=== PATIENT | female | born 1995 | race Caucasian/White ===

== ENCOUNTER 2022-03-08 06:36 | Outpatient (CLI) | payer OTHER, SELFPAY ==
--- NOTE | ~2022-03-08 | MR_ITS ---
MRI of the right knee Clinical history: Meniscal tear Technique: Coronal proton density and proton density-weighted images, sagittal proton-density and T2 fat-sat images, and axial proton-density fat-saturated images were acquired. Findings: Anterior and posterior cruciate ligaments are intact. Medial collateral ligament and the la teral collateral ligament complex are intact. Popliteus tendon is intact. Medial and lateral menisci are intact, without evidence of tear. Articular cartilage is well preserved in all 3 joint compartments. Bone marrow signals are unremarkab le. There is an intra-articular somewhat masslike lesion along the anteromedial aspect of the medial femoral condyle, with intermediate signal, with superimposed low signal foci on all pulse sequences. This lesion measures approximately 2.9 x 0.5 x 2.7 cm in extent (series 2 image 12-15, series 4 image 8-9 for example). Extensor mechanism is intact. Small joint effusion is present. No Sauer's cyst. Impression: 2.9 x 0.5 x 2.7 cm intra-articular lesion along the anteromedial aspect of the medial femoral condyle , as detailed above. This is most compatible with focal/localized PVNS. Small joint effusion. Reviewed, dictated and finalized at location [] RAISER Impression: 2.9 x 0.5 x 2.7 cm intra-articular lesion along the anteromedial aspect of the medial femoral condyle, as detailed above. This is most compatible with focal/l ocalized PVNS. Small joint effusion.
== END 2022-03-08 06:37 | disposition home or self-care (01) ==
PROVIDERS: PCP Emergency Medicine
DX: S83.271A Complex tear of lateral meniscus, current injury, right knee, initial encounter (principal); X58.XXXA Exposure to other specified factors, initial encounter; M25.461 Effusion, right knee
CPT/HCPCS: 73721